=== PATIENT | female | born 1965 | race African-American/Black ===

== ENCOUNTER 2018-04-25 19:54 | Emergency (ER) | payer OTHER, MEDICAID ==
[~2018-04-25] VITALS: Ht 160 cm; Wt 100.0 kg
[~2018-04-25 19:54] MED LIST: albuterol; hctz
[2018-04-25] MEDS ORDERED: SODIUM CHLORIDE 0.9% 1,000 ML IV ONE (21:35)
[2018-04-25 23:23] LABS: BASOPHILS % 0.5 % (0.0-2.0); EOSINOPHILS % 0.1 % (0.0-5.0); HEMATOCRIT. 34.9 % (36.0-48.0); HEMOGLOBIN. 11.8 g/dL (12.0-16.0); LYMPHOCYTES % 11.4 % (20.0-50.0); MEAN CORPUSCULAR HEMOGLOBIN 30.8 pg (28.0-32.0); MEAN CORPUSCULAR VOLUME 90.8 fL (81.0-99.0); MONOCYTES % 3.1 % (2.0-8.0); NEUTROPHILS % 84.9 % (40.0-76.0); PLATELET 243 x1000/uL (130-400); RED BLOOD CELL COUNT 3.84 mill/uL (4.2-5.4); RED CELL DISTRIBUTION WIDTH 15.3 % (11.6-14.6)
[2018-04-25 23:24] LABS: CHLORIDE 106 mEq/L (98-107)
[2018-04-25 23:36] LABS: HCG SCREEN NEGATIVE
[2018-04-26 00:53] VITALS: BP 157/86
== END 2018-04-26 01:08 | disposition home or self-care (01) ==
LOC: ER 19:54
DX: E86.0 Dehydration (principal); D64.9 Anemia, unspecified
CPT/HCPCS: 36415; 70450; 71045; 80053; 84484; 84703; 85025; 93005; 96360; 96361; 99285; J7030; Z7610